=== PATIENT | male | born 1945 | race Caucasian/White ===

== ENCOUNTER → 2016-07-19 | Outpatient (CLI) | payer OTHER, BC ==
[~2016-07-19] VITALS: Ht 185.4 cm; Wt 106.8 kg
[~2016-07-19] MED LIST: ALLO100T PO; CHOL1000 PO; COLC0.6T54 PO; ESZO1TAB16 PO; LEVO50TA6 PO; LOSA100T65 PO; SIMV40TA2 PO; TEST1KIT IM; ZOLP5TAB6 PO
[2016-07-19 13:58] VITALS: BP 143/97; PULSE 71; Ht 185.4 cm; Wt 106.8 kg
== END | disposition home or self-care (01) ==
LOC: C.NEUR 12:58
PROVIDERS: ATTEND Internal Medicine Pulmonary Disease
DX: G47.00 Insomnia, unspecified (principal)

== ENCOUNTER → 2016-11-04 | Day surgery (SDC) | payer OTHER, BC ==
[2016-10-28 12:33] VITALS: Ht 186.7 cm; Wt 103.6 kg
[~2016-11-04] VITALS: Ht 186.7 cm; Wt 103.6 kg
[~2016-11-04] MED LIST changes: +LIDOCAINE HCL 2% 2 ML VIAL (20MG/ML) ONE; +PROPOFOL IV EMULSION 10 MG/ML 20 ML VIAL IV ONE; +SODIUM CHLORIDE 0.9% 500ML 500 ML IV ONE
[2016-11-04 08:41] VITALS: TEMP 36.6
--- NOTE | 2016-11-04 08:55 | Endo History and Physical ---
History & Physical Date of Service: Nov 04, 2016. Chief Complaint: History of colon polyps Referring Physician: Allen History of Present Illness 71 yo CM who presents for colonoscopy secondary to history of colon polyps. Past Surgical History Hx Cardiac Surgery: No Hx Internal Defibrillator: No Hx Pacemaker: No Hx Abdominal Surgery: Yes (APPY) Hx of Implantable Prosthesis: No Hx Post-Op Nausea and Vomiting: No Hx Cancer Surgery: No Hx Thoracic Surgery: No Hx Orthopedic: No Hx Urinary Tract Surgery: Yes (BIPOLAR TURP) Family History None Social History Smoking Status: Never Smoker Hx Substance Use: No Hx Alcohol Use: Yes (OCCASIONAL) Allergies Coded Allergies: No Known Allergies (Unverified , 10/28/16) Current Medications Reported Home Medications Medications Dose Route/Sig Max Daily Dose Days Date Category Dose Instructions Zolpidem Tartrate 5 Mg Tab 0.5 Tab PO HS PRN 10/28/16 Reported Vitamin D3 (Cholecalciferol) 1,000 Unit Tab 2 Tabs PO QAM 10/28/16 Reported Testone Cik (Testosterone Cypionate) 200 Mg/Ml Kit 1 Ml IM [id number] 10/28/16 Reported Zocor (Simvastatin) 40 Mg Tab 40 Mg PO QAM 10/28/16 Reported Cozaar (Losartan Potassium) 100 Mg Tab 100 Mg PO QAM 10/28/16 Reported Levothyroxine Sodium 50 Mcg Tab 1 Tab PO QAM 10/28/16 Reported Lunesta (Eszopiclone) 3 Mg Tab 0.5 Tab PO BID 10/28/16 Reported 1/2 TAB PRIOR TO BED AND ANOTHER HALF AT 3AM Colchicine 0.6 Mg Tab 0.6 Mg PO UD PRN 10/28/16 Reported Zyloprim (Allopurinol) 100 Mg Tab 1 Tab PO BID 10/28/16 Reported Vital Signs Weight (Kilograms): 103.64 Height (Feet): 6 Height (Inches): 1.5 Date Time Temp Pulse Resp B/P Pulse Ox O2 Delivery O2 Flow Rate FiO2 11/04/16 08:41 36.6 78 16 122/92 96 Room Air Physical Exam General Appearance: WD/WN, no apparent distress Respiratory/Chest: Auscultation: breath sounds normal Cardiovascular: Heart Auscultation: RRR Abdomen: Bowel Sounds: normal Inspection & Palpation: soft, non-distended, no tenderness, guarding & rebound Assessment and Plan Assessment: 71 yo CM who presents for colonoscopy secondary to history of colon polyps. Plan: Proceed with colonoscopy.
--- NOTE | 2016-11-04 10:13 | GI REPORT ---
Procedure Date: 11/04/2016 9:37 AM Procedure: Colonoscopy Indications: High risk colon cancer surveillance: Personal history of colonic polyps Medicines: Monitored Anesthesia Care Complications: No immediate complications. Estimated Blood Loss: Estimated blood loss: none. Procedure: Pre-Anesthesia Assessment: - Prior to the procedure, a History and Physical was performed, and patient medications and allergies were reviewed. The patient's tolerance of previous anesthesia was also reviewed. The risks and benefits of the procedure and the sedation options and risks were discussed with the patient. All questions were answered, and informed consent was obtained. Prior Anticoagulants: The patient has taken no previous anticoagulant or antiplatelet agents. ASA Grade Assessment: II - A patient with mild systemic disease. After reviewing the risks and benefits, the patient was deemed in satisfactory condition to undergo the procedure. After I obtained informed consent, the scope was passed under direct vision. Throughout the procedure, the patient's blood pressure, pulse, and oxygen saturations were monitored continuously. The On-site loaner was introduced through the anus and advanced to the cecum, identified by appendiceal orifice and ileocecal valve. The colonoscopy was performed without difficulty. The patient tolerated the procedure well. The quality of the bowel preparation was good. The ileocecal valve, appendiceal orifice, and rectum were photographed. Findings: Multiple small-mouthed diverticula were found in the sigmoid colon. Non-bleeding internal hemorrhoids were found during retroflexion. The hemorrhoids were small. Impression: - Diverticulosis in the sigmoid colon. - Non-bleeding internal hemorrhoids. - No specimens collected. Recommendation: - Resume previous diet. - Continue present medications. - Repeat colonoscopy in 5 years for surveillance. - Return to primary care physician as previously scheduled. Javed Santos DO 11/04/2016 10:11:23 AM This report has been signed electronically. Note Initiated On: 11/04/2016 9:37 AM I attest to the content of the Intraoperative Record and orders documented therein, exceptions below
--- NOTE | 2016-11-04 10:14 | Discharge Instructions ---
Endoscopy Patient Instructions Date / Procedure(s) Performed Nov 04, 2016. Colonoscopy Allergy Information Coded Allergies: No Known Allergies (Unverified , 10/28/16) Discharge Date / Findings Nov 04, 2016. Diverticulosis Internal hemorrhoids Medication Instructions OK to resume all medications today as prescribed Reported Home Medications Medications Dose Route/Sig Max Daily Dose Days Date Category Dose Instructions Zolpidem Tartrate 5 Mg Tab 0.5 Tab PO HS PRN 10/28/16 Reported Vitamin D3 (Cholecalciferol) 1,000 Unit Tab 2 Tabs PO QAM 10/28/16 Reported Testone Cik (Testosterone Cypionate) 200 Mg/Ml Kit 1 Ml IM [id number] 10/28/16 Reported Zocor (Simvastatin) 40 Mg Tab 40 Mg PO QAM 10/28/16 Reported Cozaar (Losartan Potassium) 100 Mg Tab 100 Mg PO QAM 10/28/16 Reported Levothyroxine Sodium 50 Mcg Tab 1 Tab PO QAM 10/28/16 Reported Lunesta (Eszopiclone) 3 Mg Tab 0.5 Tab PO BID 10/28/16 Reported 1/2 TAB PRIOR TO BED AND ANOTHER HALF AT 3AM Colchicine 0.6 Mg Tab 0.6 Mg PO UD PRN 10/28/16 Reported Zyloprim (Allopurinol) 100 Mg Tab 1 Tab PO BID 10/28/16 Reported Provider Instructions Activity Restrictions - No exercising or heavy lifting for 24 hours. - Do not drink alcohol the day of the procedure. - Do not drive a car or operate machinery until the day after the procedure. - Do not make any important decisions or sign important papers in 24 hours after the procedure. Following Day: - Return to full activity which may include returning to work/school. Diet Start your diet with liquids and light foods (jello, soup, juice, toast). Then eat your usual diet if not nauseated. Treatment For Common After Affects For mild abdominal pain, bloating, or excessive gas: - Rest - Eat lightly - Lie on right side Follow-Up Information Follow-up with Allen as scheduled Anesthesia Information What You Should Know You have had a procedure that required some medicine to reduce anxiety and discomfort. This treatment is called moderate sedation. After receiving the treatment, you may be sleepy, but you will be able to breathe on your own. The effects of the treatment may last for several hours. Follow these instructions along with Activity/Diet recommendations noted above: * Do NOT do anything where dizziness or clumsiness would be dangerous. * Rest quietly at home today, then you can be up and about tomorrow. * Have a responsible person stay with you the rest of today. * You may have had an I.V. today. If so, you may take the dressing off later today. Recommendations Call your doctor if: * Trouble breathing * Continuous vomiting for more than 24 hours * Temperature above 101 degrees * Severe abdominal pain or bloating * Pain not relieved by pain medicine ordered * There is increased drainage or redness from any incision * A large amount of rectal bleeding greater than 2-3 tablespoons. (If you had a polyp/s removed or have hemorrhoids, a small amount of blood - from the rectum is to be expected.) * You have any unanswered questions or concerns. IN THE EVENT OF A SERIOUS EMERGENCY, GO TO THE NEAREST EMERGENCY ROOM Your discharge instructions were prepared by provider Javed Santos. Patient Instructions Signature Page [place] Patient (or Guardian) Signature/Date: I have read and understand the instructions given to me by my caregivers. Caregiver/RN/Doctor Signature/Date: The above-named patient and/or guardian has received patient instructions on this date. + Original Patient Signature Page (only) stays with chart. Please make copy for patient.
--- NOTE | 2016-11-04 10:22 | Anesthesiology Progress Note ---
Anesthesia Post Op Note Date & Time Nov 04, 2016 at 10:21 Vital Signs Pain Intensity: 0 Vital Signs Past 12 Hours Date Time Temp Pulse Resp B/P Pulse Ox O2 Delivery O2 Flow Rate FiO2 11/04/16 10:14 81 16 121/85 95 Room Air 11/04/16 10:09 75 16 115/74 94 Room Air 11/04/16 08:41 36.6 78 16 122/92 96 Room Air Notes Mental Status: alert / awake / arousable, participated in evaluation Pt Amnestic to Procedure: Yes Nausea / Vomiting: adequately controlled Pain: adequately controlled Airway Patency, RR, SpO2: stable & adequate BP & HR: stable & adequate Hydration State: stable & adequate Anesthetic Complications: no major complications apparent
[2016-11-04 10:38] VITALS: BP 138/84; PULSE 78; O2SAT 95
== END | disposition home or self-care (01) ==
LOC: C.GI 08:18
PROVIDERS: ATTEND Internal Medicine
DX: Z12.11 Encounter for screening for malignant neoplasm of colon (principal); Z86.010 Personal history of colon polyps; K57.90 Diverticulosis of intestine, part unspecified, without perforation or abscess without bleeding; K64.8 Other hemorrhoids

== ENCOUNTER → 2017-01-06 | Outpatient (CLI) | payer OTHER, BC ==
[~2017-01-06] VITALS: Ht 185.4 cm; Wt 106.9 kg
[~2017-01-06] MED LIST changes: -LIDOCAINE HCL 2% 2 ML VIAL (20MG/ML) ONE; -PROPOFOL IV EMULSION 10 MG/ML 20 ML VIAL IV ONE; -SODIUM CHLORIDE 0.9% 500ML 500 ML IV ONE
[2017-01-06 15:15] VITALS: BP 131/86; PULSE 88; Ht 185.4 cm; Wt 106.9 kg
== END | disposition home or self-care (01) ==
LOC: C.NEUR 14:16
PROVIDERS: ATTEND Physician Assistant
DX: G47.00 Insomnia, unspecified (principal)

== ENCOUNTER → 2017-06-13 | Outpatient (CLI) | payer OTHER, BC ==
[2017-06-13 13:24] LABS: ALT/SGPT 18 U/L (12-78); BLOOD UREA NITROGEN 21 mg/dl (7-18); BUN/CREATININE RATIO 14.9 (10-20); CALCIUM 8.8 mg/dl (8.5-10.1); CARBON DIOXIDE 26 mmol/L (21-32); CHLORIDE 108 mmol/L (98-107); CHOLESTEROL 150 mg/dl (0-200); GLUCOSE 82 mg/dl (70-99); POTASSIUM 3.9 mmol/L (3.5-5.1); SODIUM 140 mmol/L (136-145); URIC ACID 6.5 mg/dl (2.6-7.2)
[2017-06-13 13:44] LABS: AST/SGOT 13 U/L (15-37); CHOLESTEROL/HDL RATIO 4.7; HDL CHOLESTEROL 32 mg/dl; LDL CHOLESTEROL CALCULATED 94 mg/dl; TRIGLYCERIDES 118 mg/dl (0-150); VERY LOW DENSITY LIPOPROT CALC 24 mg/dl
== END | disposition home or self-care (01) ==
LOC: C.LABMFLN 09:17
PROVIDERS: ATTEND Family Medicine
DX: E78.00 Pure hypercholesterolemia, unspecified (principal); M10.9 Gout, unspecified; E03.9 Hypothyroidism, unspecified; E34.9 Endocrine disorder, unspecified; I10 Essential (primary) hypertension

== ENCOUNTER → 2017-07-13 | Outpatient (CLI) | payer OTHER, BC ==
[~2017-07-13] VITALS: Ht 185.4 cm; Wt 23.5 kg
[2017-07-13 14:01] VITALS: BP 124/84; PULSE 83; Ht 185.4 cm; Wt 23.5 kg
== END | disposition home or self-care (01) ==
LOC: C.NEUR 13:15
PROVIDERS: ATTEND Physician Assistant
DX: G47.00 Insomnia, unspecified (principal)

== ENCOUNTER → 2017-08-24 | Outpatient (CLI) | payer OTHER, BC | END | disposition home or self-care (01) | LOC: C.LABMFLN 10:09 | PROVIDERS: ATTEND Family Medicine | DX: E34.9 Endocrine disorder, unspecified (principal) ==

== ENCOUNTER → 2017-09-19 | Outpatient (CLI) | payer OTHER, BC | END | disposition home or self-care (01) | LOC: C.LABMFLN 10:39 | PROVIDERS: ATTEND Family Medicine | DX: E34.9 Endocrine disorder, unspecified (principal) ==

== ENCOUNTER → 2017-09-29 | Outpatient (CLI) | payer OTHER, BC ==
[2017-09-29 18:48] LABS: HEMATOCRIT 36.9 % (42-52); HEMOGLOBIN 12.2 g/dL (14.0-18.0)
== END | disposition home or self-care (01) ==
LOC: C.LABMFLN 13:40
PROVIDERS: ATTEND Family Medicine
DX: E34.9 Endocrine disorder, unspecified (principal)